=== PATIENT | female | born 1940 ===

== ENCOUNTER 2020-06-08 21:54 | Observation (INO) ==
[2020-06-09] MEDS ORDERED: ONDANSETRON 4 MG/2 ML VIAL IV PRN (00:02)
[2020-06-09] MEDS ORDERED: DEXTROSE 50% 25 GM/50 ML VIAL IV PRN (00:02)
[2020-06-09] MEDS ORDERED: GLUCAGON 1 MG VIAL IM PRN (00:02)
[2020-06-09] MEDS ORDERED: ACETAMINOPHEN 325 MG TABLET PO PRN (00:02)
[2020-06-09 01:20] LABS: Basophils % 0.1 % (0.0-0.8); Hematocrit 40.3 VOL% (35.7-47.0); Hemoglobin 13.8 GM/DL (12.0-16.0); Immature Granulocytes % 0.8 %; Immature Granulocytes Absolute 0.06 #; Lymphocytes # 0.3 10*3/uL (1.4-4.0); Lymphocytes % 3.3 % (21.3-54.2); Mean Corpuscular HGB Conc 34.2 GM/DL (32-36); Mean Corpuscular Volume 94.8 FL (87-102); Mean Platelet Volume 9.9 FL (9.6-12.0); Monocytes % 5.5 % (1.7-12.7); Neutrophils % 90.3 % (38.7-73.9); Platelet Count 63 T/CUMM (130-400); Red Blood Count 4.25 MC/CUMM (3.8-5.5); Red Cell Distribution Width 12.8 % (9.3-17.3); White Blood Count 7.9 T/CUMM (4-12)
[2020-06-09 01:31] LABS: Albumin 2.8 G/DL (3.4-5.0); Bilirubin,Total 1.1 MG/DL (0.2-1.0); Calcium 8.1 MG/DL (8.5-10.1); Osmolality,Calculated 277.5 MOS/KG (273-304); Total Protein 8.2 G/DL (6.4-8.3)
[2020-06-09 02:01] LABS: Band Neutrophils 1 % (0-10); Lymphocytes 5 % (20-55); Platelet Estimate Decreased; Segmented Neutrophils 88 % (50-85); Total Cells Counted 100
[2020-06-09 02:02] LABS: Polychromasia Slight
[2020-06-09 02:03] LABS: Microcytosis Slight
[2020-06-09] MEDS: cefTRIAXone 1,000 MG in SYRINGE 1 EACH IV SCH (05:25)
[2020-06-09 06:53] LABS: Apearance,Urine CLEAR (Clear); Bilirubin,Urine Negative (Negative); Blood, Urine Small mg/dL (Negative); Glucose,Urine (UA) Negative (Negative); Ketones,Urine Negative (Negative); Nitrite,Urine Negative (Negative); Protein,Urine Negative; RBC,Urine 4 /HPF (0-4); Squamous Epithelial Cell,Urine Occasional /HPF (0-10); Urine Color Yellow (Yellow); Urine Specific Gravity 1.046 (1.001-1.035); WBC,Urine 15 /HPF (0-6)
[2020-06-09 07:28] LABS: % Iron Saturation 8.1 % (18-50)
[2020-06-09 09:54] LABS: Hepatitis B Core IgM Quant 0.22 Index; Hepatitis B Surface Ag Quant < 0.10 Index; Hepatitis B Surface Ag Result Negative (Negative); Hepatitis C Virus Ab Quant 0.14 Index; Hepatitis C Virus Ab Result Negative (Negative)
[2020-06-09] MEDS ORDERED: ENOXAPARIN 40 MG/0.4 ML SYRINGE SUBCUT SCH (14:30)
[2020-06-10] MEDS: cefTRIAXone 1,000 MG in SYRINGE 1 EACH IV SCH (05:25)
[2020-06-10 07:41] LABS: Basophils % 0.4 % (0.0-0.8); Eosinophils # 0.1 10*3/uL (0.0-0.87); Eosinophils % 2.1 % (0.00-10.9); Hematocrit 37.3 VOL% (35.7-47.0); Hemoglobin 12.6 GM/DL (12.0-16.0); Immature Granulocytes % 0.6 %; Immature Granulocytes Absolute 0.03 #; Lymphocytes # 0.5 10*3/uL (1.4-4.0); Lymphocytes % 9.4 % (21.3-54.2); Mean Corpuscular HGB Conc 33.8 GM/DL (32-36); Mean Platelet Volume 9.9 FL (9.6-12.0); Neutrophils % 81.5 % (38.7-73.9); Red Blood Count 3.97 MC/CUMM (3.8-5.5); Red Cell Distribution Width 12.8 % (9.3-17.3); White Blood Count 5.3 T/CUMM (4-12)
[2020-06-10 07:42] LABS: Platelet Count 55 T/CUMM (130-400)
[2020-06-10 08:06] LABS: Calcium 7.7 MG/DL (8.5-10.1); Osmolality,Calculated 275.7 MOS/KG (273-304)
[2020-06-10 08:14] LABS: Hypochromasia 1+; Microcytosis Slight; Platelet Estimate Decreased
[2020-06-10] MEDS ORDERED: POTASSIUM CHLORIDE 20 MEQ TABLET PO ONE (11:08)
[2020-06-10 11:52] VITALS: BP 111/57
[2020-06-10 12:03] LABS: Albumin 2.5 G/DL (3.4-5.0); Bilirubin,Direct 0.23 MG/DL (0.0-0.20); Bilirubin,Indirect 0.4 MG/DL (0.0-1.0); Bilirubin,Total 0.6 MG/DL (0.2-1.0); Total Protein 7.3 G/DL (6.4-8.3)
[2020-06-10 20:41] LABS: Antinuclear Ab, S 7.1 U
[2020-06-12 11:47] LABS: Anti-Nuclear Antibody Pattern Speckled
[2020-06-15 16:55] LABS: Double Stranded DNA Antibodies < 25.0 IU/ML
[2020-06-15 16:57] LABS: Anti SS-A Antibodies > 100 EU/ML
== END 2020-06-10 15:40 | disposition home or self-care (01) ==
LOC: N.3E → SUATTDRO 23:40
PROVIDERS: ADMIT Internal Medicine; ATTEND Hospitalist